=== PATIENT | male | born 1940 | race Caucasian/White ===

== ENCOUNTER 2016-12-14 13:53 | Outpatient (CLI) | payer MEDICARE, OTHER ==
[2013-03-06 09:37] VITALS: BP 118/69
[2016-12-15 00:31] LABS: TOTAL PROTEIN 6.3 g/dL (6.0-8.5)
== END 2016-12-14 14:00 ==
LOC: LAB 13:53
PROVIDERS: ATTEND Family Medicine
DX: I10 Essential (primary) hypertension (principal)
CPT/HCPCS: 36415; 80053

== ENCOUNTER 2017-01-10 16:51 | Outpatient (CLI) | payer MEDICARE, OTHER ==
[2013-03-06 09:37] VITALS: BP 118/69
[2017-01-10 17:09] LABS: BASOPHILS % 0.2 (0.0-1.5); EOSINOPHILS % 4.7 % (0.0-6.8); LYMPHOCYTES # 1.3 # k/uL (0.6-4.0); MEAN CORPUSCULAR HEMOGLOBIN 33.3 pg (28.0-34.0); MONOCYTES # 0.1 # k/uL (0.0-0.9); MONOCYTES % 3.6 % (0.0-11.0)
[2017-01-10 17:25] LABS: eGFR (African) > 60; eGFR (Non-African) > 60
== END 2017-01-10 16:52 ==
LOC: LAB 16:51
PROVIDERS: ATTEND Family Medicine
DX: I10 Essential (primary) hypertension (principal); R06.01 Orthopnea
CPT/HCPCS: 36415; 80053; 83880; 85025

== ENCOUNTER 2017-11-08 12:15 | Outpatient (CLI) | payer MEDICARE, OTHER ==
[2013-03-06 09:37] VITALS: BP 118/69
[2017-11-08 12:33] LABS: BASOPHILS % 0.6 (0.0-1.5); EOSINOPHILS % 3.5 % (0.0-6.8); MEAN CORPUSCULAR HEMOGLOBIN 33.6 pg (28.0-34.0); MEAN CORPUSCULAR VOLUME 101.3 fl (80.0-100.0); MONOCYTES % 4.7 % (0.0-11.0); NEUTROPHILS # 4.4 # k/uL (1.4-7.7)
[2017-11-08 13:22] LABS: eGFR (African) > 60; eGFR (Non-African) 52
== END 2017-11-08 12:16 ==
LOC: LAB 12:15
PROVIDERS: ATTEND Family Medicine
DX: I10 Essential (primary) hypertension (principal); Z79.01 Long term (current) use of anticoagulants
CPT/HCPCS: 36415; 80053; 80061; 85025

== ENCOUNTER 2017-11-09 10:52 | Outpatient (CLI) | payer MEDICARE, OTHER ==
[2013-03-06 09:37] VITALS: BP 118/69
--- NOTE | 2017-11-09 14:17 | Diagnostic Imaging Report ---
SAVANNA ARAIZA [facility] [address] [facility].[address] [address] Report Submission Date: Nov 09, 2017 12:12:07 PM INFRASTRUCTURE ARCHITECT Patient Study Name: VILLA YU Date: Nov 09, 2017 11:20:12 AM INFRASTRUCTURE ARCHITECT Modality Type: US\OT Gender: M Description: LIMITED BILAT ANN 1-2 LVL : 39 Institution: [facility] Physician: SAVANNA ARAIZA Examination: Ultrasound arterial History: Leg discomfort Comparison exams: None available Findings: Sonographic evaluation of the lower extremity arterial system from the groin to the distal extremities bilaterally demonstrates reduced waveforms. Right ankle/brachial index of 0.68. Left ankle/brachial index of 0.62. Impression Bilateral reduction to hemodynamic flow Electronically signed on Nov 09, 2017 12:12:07 PM INFRASTRUCTURE ARCHITECT by: Meir CONTRERAS
== END 2017-11-09 11:00 ==
LOC: RAD 10:52
PROVIDERS: ATTEND Family Medicine
DX: I73.9 Peripheral vascular disease, unspecified (principal)
CPT/HCPCS: 93922

== ENCOUNTER 2018-02-12 13:58 | Outpatient (CLI) | payer MEDICARE, OTHER ==
[2013-03-06 09:37] VITALS: BP 118/69
[2018-02-12 14:15] LABS: BASOPHILS % 0.3 (0.0-1.5); EOSINOPHILS % 2.6 % (0.0-6.8); MEAN CORPUSCULAR HEMOGLOBIN 33.4 pg (28.0-34.0); MEAN CORPUSCULAR VOLUME 103.2 fl (80.0-100.0); MONOCYTES % 3.5 % (0.0-11.0); NEUTROPHILS # 4.8 # k/uL (1.4-7.7)
[2018-02-12 14:29] LABS: eGFR (African) 50; eGFR (Non-African) 42
== END 2018-02-12 14:00 ==
LOC: LAB 13:58
PROVIDERS: ATTEND Internal Medicine Cardiovascular Disease
DX: I10 Essential (primary) hypertension (principal); I34.0 Nonrheumatic mitral (valve) insufficiency; I48.1 Persistent atrial fibrillation; I50.22 Chronic systolic (congestive) heart failure; R06.02 Shortness of breath
CPT/HCPCS: 36415; 80048; 83880; 85025

== ENCOUNTER 2018-03-07 13:41 | Outpatient (CLI) | payer MEDICARE, OTHER ==
[2013-03-06 09:37] VITALS: BP 118/69
[2018-03-07 14:23] LABS: eGFR (African) 50; eGFR (Non-African) 42
== END 2018-03-07 13:42 ==
LOC: LAB 13:41
PROVIDERS: ATTEND Internal Medicine Cardiovascular Disease
DX: I10 Essential (primary) hypertension (principal)
CPT/HCPCS: 36415; 80048

== ENCOUNTER 2018-05-08 09:17 | Outpatient (CLI) | payer MEDICARE, OTHER ==
[2013-03-06 09:37] VITALS: BP 118/69
[2018-05-08 10:13] LABS: eGFR (African) 50; eGFR (Non-African) 42
== END 2018-05-08 09:19 ==
LOC: LAB 09:17
PROVIDERS: ATTEND Nurse Practitioner
DX: I10 Essential (primary) hypertension (principal); I25.5 Ischemic cardiomyopathy; I50.22 Chronic systolic (congestive) heart failure
CPT/HCPCS: 36415; 80048

== ENCOUNTER 2018-07-16 13:45 | Outpatient (CLI) | payer MEDICARE, OTHER ==
[2013-03-06 09:37] VITALS: BP 118/69
[2018-07-16 14:44] LABS: eGFR (African) > 60; eGFR (Non-African) 52
== END 2018-07-16 13:46 ==
LOC: LAB 13:45
PROVIDERS: ATTEND Nurse Practitioner
DX: I10 Essential (primary) hypertension (principal); I25.5 Ischemic cardiomyopathy; I48.1 Persistent atrial fibrillation; I50.22 Chronic systolic (congestive) heart failure
CPT/HCPCS: 36415; 80048

== ENCOUNTER 2018-10-30 14:12 | Outpatient (CLI) | payer MEDICARE, OTHER ==
[2013-03-06 09:37] VITALS: BP 118/69
[2018-10-30 14:38] LABS: BASOPHILS % 0.3 (0.0-1.5); MONOCYTES % 5.2 % (0.0-11.0); NEUTROPHILS # 5.1 # k/uL (1.4-7.7)
[2018-10-30 15:00] LABS: eGFR (Non-African) 52
== END 2018-10-30 14:13 ==
LOC: LAB 14:12
PROVIDERS: ATTEND Family Medicine
DX: R10.13 Epigastric pain (principal)
CPT/HCPCS: 36415; 80053; 83690; 85025

== ENCOUNTER 2018-11-06 07:56 | Outpatient (CLI) | payer MEDICARE, OTHER ==
[2013-03-06 09:37] VITALS: BP 118/69
--- NOTE | 2018-11-06 14:27 | Diagnostic Imaging Report ---
SAVANNA ARAIZA [facility] [address] [facility].[address] [address] Report Submission Date: Nov 06, 2018 8:55:47 AM DISTILLERY WORKER GENERAL Patient Study Name: VILLA YU Date: Nov 06, 2018 7:02:45 AM DISTILLERY WORKER GENERAL Modality Type: US Gender: M Description: US RUQ : 38 Institution: [facility] Physician: SAVANNA ARAIZA Right upper quadrant ultrasound History: Epigastric pain for 1 month Transverse and longitudinal images were obtained through the right upper quadrant. The examination is limited as the patient is unable to breath hold. No pancreatic abnormalities are noted. No abnormalities of the liver are noted. The gallbladder is normal without gallstones or gallbladder wall thickening. The right kidney measures 11.6 cm in length and demonstrates no hydronephrosis. There is mild thinning of the cortex. The common bile duct is within normal limits measuring 3.2 mm. Impression: Limited exam as the patient was unable to breath hold. There is mild thinning of the cortex of the right kidney. Otherwise, no abnormalities are noted. Electronically signed on Nov 06, 2018 8:55:47 AM DISTILLERY WORKER GENERAL by: Anitra CONTRERAS
== END 2018-11-06 08:30 ==
LOC: RAD 07:56
PROVIDERS: ATTEND Family Medicine
DX: R10.13 Epigastric pain (principal)
CPT/HCPCS: 76705

== ENCOUNTER 2019-07-24 15:06 | Outpatient (CLI) | payer MEDICARE, OTHER ==
[2013-03-06 09:37] VITALS: BP 118/69
[2019-07-24 15:26] LABS: eGFR (Non-African) 34
== END 2019-07-24 15:08 ==
LOC: LAB 15:06
PROVIDERS: ATTEND Internal Medicine Cardiovascular Disease
DX: I25.5 Ischemic cardiomyopathy (principal); I48.2 Chronic atrial fibrillation; R06.02 Shortness of breath
CPT/HCPCS: 36415; 80048

== ENCOUNTER 2019-07-31 04:51 | Emergency (ER) | payer MEDICARE, OTHER ==
[2019-07-31] MEDS ORDERED: dilTIAZem HCL 25 MG/5 ML VIAL IVP ONE (05:14)
--- NOTE | 2019-07-31 05:26 | ED Physician Documentation ---
Chest Pain - HISTORIAN Historian: patient - HPI Stated Complaint: chest pain Chief Complaint: Chest Pain Additional Information: Patient is an 79 year old male who presents to the ER with c/o chest pain that started around 3 a.m. this morning. Patient states that he took some Zantac because it felt like acid reflux. He decided to drive to the ER; he states "I don't know why I came in because the acid reflux is gone". He denies any chest pain, palpitations, or shortness of breath. He states "I feel fine and I need to get out of here soon". Heart rate is 110-130s he states "I always run that"- explained his blood pressure was elevated 159/100 and he states "thats good for me". 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 Onset: hours (started at 3 a.m.) Timing: sudden onset, resolved on arrival to ED Duration: none Last known Well Date: 07/31/19 Last Known Well Time: 03:00 Last known Well Code/Unknown Code: Known Context: rest Severity: moderate Quality: burning Chest Pain Radiation: epigastric Chest Pain Signs/Symptoms: tachycardia (states- normal). denies: nausea, vomiting, dyspnea, palpitations Worsened By: nothing Relieved By: antacids - ROS CONST: none MS/LYMPH: none GI/: none EYES/ENT: none SKIN/ENDO: none NEURO/PSYCH: none - PAST HX PA risk factors: hypertension, hyperlipidemia, cardiac disease, CHF, A-Fib DVT/PE Risk Factors: other (chronic kidney disease) TAD/AAA risk factors: none Neuro deficit: none GI disease: GERD Lung disease: none Surgeries/Procedures: other (prostectomy, AV prosthetic, eye surgery) Immunizations: UTD - SOCIAL HX Smoking History: non-smoker Alcohol Use: rarely Drug Use: none - FAMILY HX Family HX: none - VITAL SIGNS Vital Signs: Vital Signs Temp Pulse Resp BP Pulse Ox 95.6 F L 115 H 25 H 153/74 99 07/31/19 05:05 07/31/19 05:06 07/31/19 05:05 07/31/19 05:05 07/31/19 05:06 - REVIEWED ASSESSMENTS Nursing Assessment Reviewed: Yes Vitals Reviewed: Yes <Margarita Villa - Last Filed: 07/31/19 06:52> - VITAL SIGNS Vital Signs: Vital Signs Temp Pulse Resp BP Pulse Ox 95.6 F L 75 25 H 153/74 96 07/31/19 05:05 07/31/19 07:00 07/31/19 05:05 07/31/19 05:05 07/31/19 07:00 <Petra Lowery - Last Filed: 07/31/19 07:24> - PAST HX Allergies/Adverse Reactions: Allergies Allergy/AdvReac Type Severity Reaction Status Date / Time No Known Drug Allergies Allergy Verified 07/31/19 05:22 Home Medications: Ambulatory Orders Medication Instructions Recorded Apixaban [Eliquis] 5 mg PO BID u2 06/22/16 ALPRAZolam [Xanax] 1 tab PO PRN PRN 07/31/19 Carvedilol [Coreg] 1 tab PO BID 07/31/19 Furosemide [Lasix] 1 tab PO DAILY 07/31/19 Isosorbide Mononitrate [Imdur] 1 tab PO DAILY 07/31/19 Rosuvastatin Calcium [Crestor] 1 tab PO DAILY 07/31/19 Sacubitril/Valsartan [Entresto 97 1 tab PO BID 07/31/19 mg-103 mg Tablet] Spironolactone [Aldactone] 1 tab PO DAILY 07/31/19 Progress - Progress Progress: 05:58 talk to patient about lab work; heart rate down to 77 and blood pressure down to 106/49 after Cardizem. He refuses to be admitted; states that he feels fine; patient agreed to stay until 7 a.m. to repeat troponin but states he is going home afterward. Explained about repeating Troponin; he is ok with that. He saw Admission Liaison earlier this month and he is aware of kidney function; he was told to drink more water. 06:50 2nd troponin drawn; patient denies any chest pain, shortness of breath, or palpitations; still wanting to go home but will wait for troponin results. <Margarita Villa - Last Filed: 07/31/19 06:52> - Progress Progress: 0723: lab continues to be within normal limits - discharge as written - he is aware and voices understanding DG <Petra Lowery - Last Filed: 07/31/19 07:24> ED Results Lab/Radiology - Orders Orders: ED Orders Category Date Time Status Continuous EKG monitoring Q30M Care 07/31/19 05:06 Ordered Continuous Pulse Oximetry Q30M Care 07/31/19 05:[address] IV Lock 1T Care 07/31/19 05:06 Ordered CHEST 1VIEW [RAD] Stat Exams 07/31/19 Ordered BNP [NTBNP] Stat Lab 07/31/19 Ordered CBC/PLATELET/DIFF Routine Lab 07/31/19 05:06 Ordered CMP Routine Lab 07/31/19 05:06 Ordered CREATINE KINASE Routine Lab 07/31/19 05:06 Ordered TROPONIN I Stat Lab 07/31/19 05:06 Ordered dilTIAZem HCL [Cardizem] Med 07/31/19 05:14 Once 20 mg IVP STAT ONE Oxygen Daily Oxygen 07/31/19 05:15 Ordered EKG WITH COMPARISON Stat Ther 07/31/19 05:06 Ordered <Margarita Villa - Last Filed: 07/31/19 06:52> - Lab Results Lab Results: Lab Results 07/31/19 07/31/19 07/31/19 06:46 05:17 05:17 WBC RBC Hgb Hct MCV MCH MCHC RDW Plt Count Neut % (Auto) Lymph % (Auto) [place] % (Auto) Eos % (Auto) Baso % (Auto) Neut # (Auto) Lymph # (Auto) [place] # (Auto) Eos # (Auto) Baso # (Auto) Sodium 140 mmol/L mmol/L (137-145) Potassium 5.0 mmol/L mmol/L (3.5-5.1) Chloride 102 mmol/L mmol/L (98-107) Carbon Dioxide 26 mmol/L mmol/L (22-30) Anion Gap 17.0 BUN 54 mg/dL H mg/dL (9-20) Creatinine 2.33 mg/dL H mg/dL (0.66-1.25) Estimated Creat Clear 34 Est GFR ( Amer) 35 L (60 - ) Est GFR (Non-Af Amer) 29 L (60 - ) Glucose 116 mg/dL H mg/dL (74-106) Calcium 9.2 mg/dL mg/dL (8.4-10.2) Total Bilirubin 0.5 mg/dL mg/dL (0.2-1.3) AST 36 U/L U/L (15-46) ALT 36 U/L U/L (13-69) Alkaline Phosphatase 88 U/L U/L (38-126) Creatine Kinase 40 U/L L U/L (55-170) Troponin I 0.028 ng/mL ng/mL 0.022 ng/mL ng/mL (0.012-0.034) (0.012-0.034) NT-Pro-B Natriuret Pep 1224.8 pg/mL H pg/mL (11.1-450.0) Total Protein 7.2 g/dL g/dL (6.3-8.2) Albumin 4.3 g/dL g/dL (3.5-5.0) 07/31/19 05:17 WBC 8.40 K/ul K/ul (4.00-12.00) RBC 4.35 M/ul M/ul (3.90-5.20) Hgb 14.7 g/dL g/dL (12.0-18.0) Hct 43.6 % % (37.0-53.0) MCV 100.0 fl fl (80.0-100.0) MCH 33.7 pg pg (28.0-34.0) MCHC 33.6 g/dL g/dL (30.0-36.0) RDW 11.8 % % (11.3-14.3) Plt Count 137 K/mm3 K/mm3 (130-400) Neut % (Auto) 58.9 % % (39.0-79.0) Lymph % (Auto) 31.9 % % (16.0-50.0) [place] % (Auto) 6.2 % % (0.0-11.0) Eos % (Auto) 2.5 % % (0.0-6.8) Baso % (Auto) 0.5 % % (0.0-1.5) Neut # (Auto) 4.9 # k/uL # k/uL (1.4-7.7) Lymph # (Auto) 2.7 # k/uL # k/uL (0.6-4.0) [place] # (Auto) 0.5 # k/uL # k/uL (0.0-0.9) Eos # (Auto) 0.2 # k/uL # k/uL (0.0-0.6) Baso # (Auto) 0.0 # k/uL # k/uL (0.0-0.5) Sodium Potassium Chloride Carbon Dioxide Anion Gap BUN Creatinine Estimated Creat Clear Est GFR ( Amer) Est GFR (Non-Af Amer) Glucose Calcium Total Bilirubin AST ALT Alkaline Phosphatase Creatine Kinase Troponin I NT-Pro-B Natriuret Pep Total Protein Albumin - Orders Orders: ED Orders Category Date Time Status Continuous EKG monitoring Q30M Care 07/31/19 05:06 Active Continuous Pulse Oximetry Q30M Care 07/31/19 05:[address] IV Lock 1T Care 07/31/19 05:06 Active CHEST 1VIEW [RAD] Stat Exams 07/31/19 Taken BNP [NTBNP] Stat Lab 07/31/19 06:46 Completed CBC/PLATELET/DIFF Routine Lab 07/31/19 05:17 Completed CMP Routine Lab 07/31/19 05:17 Completed CREATINE KINASE Routine Lab 07/31/19 05:17 Completed TROPONIN I Routine Lab 07/31/19 06:46 Completed TROPONIN I Stat Lab 07/31/19 05:17 Completed dilTIAZem HCL [Cardizem] Med 07/31/19 05:14 Discontinued 20 mg IVP STAT ONE Oxygen Daily Oxygen 07/31/19 05:15 Ordered EKG WITH COMPARISON Stat Ther 07/31/19 05:06 Ordered <Petra Lowery - Last Filed: 07/31/19 07:24> Chest Pain Physical Exam - EXAM General Appearance: no acute distress, alert EENT: eye inspection normal, ENT inspection normal, pharynx normal, no signs of dehydration, CYNTHIA Neck: nml inspection, no carotid bruit Respiratory: chest non-tender, nml breath sounds CVS: pulses equal, irregularly irreg. rhythm, tachycardia Abdomen: soft, normal bowel sounds Skin: warm/dry, normal color Extremities: non-tender, normal range of motion Neuro: oriented X3, CN's nml as tested, motor nml, sensation nml, mood/affect nml, cognition normal <Margarita Villa - Last Filed: 07/31/19 06:52> Discharge <Margarita Villa - Last Filed: 07/31/19 06:52> Decision to Admit: NO Date of Decison to Admit: 07/31/19 Decision Time: 07:23 <Petra Lowery - Last Filed: 07/31/19 07:24> Clincal Impression: GERD (gastroesophageal reflux disease) Qualifiers: Esophagitis presence: without esophagitis Qualified Code(s): K21.9 - Gastro- esophageal reflux disease without esophagitis A-fib Qualifiers: Atrial fibrillation type: chronic Qualified Code(s): I48.2 - Chronic atrial fibrillation Referrals: Giovanni Woodard MD [Primary Care Provider] - 2 Days Additional Instructions: Follow up with PCP this week Patient was given 10 mg of Cardizem IVP in ER for A-fib with rate of 120 Cardiac enzymes were negative Increase water intake Start taking acid reflux medication again; Omeprazole Return to ER if you develop chest pain, shortness of breath, palpitations, weakness, slurred speech. Condition: Stable Disposition: 01 HOME, SELF-CARE
[2019-07-31 06:36] LABS: BASOPHILS % 0.5 % (0.0-1.5); NEUTROPHILS # 4.9 # k/uL (1.4-7.7)
[2019-07-31 07:30] VITALS: BP 118/69
--- NOTE | 2019-08-01 14:22 | Diagnostic Imaging Report ---
DAWSON VILLEDA ED [facility] [address] [facility].[address] [address] Report Submission Date: Jul 31, 2019 5:36:36 AM CDT Patient Study Name: VILLA YU Date: Jul 31, 2019 5:17:21 AM CDT Modality Type: DX Gender: M Description: CHEST 1VIEW : 38 Institution: [facility] Physician: DAWSON VILLEDA ED Chest, AP portable History: Chest pain Findings: No infiltrate, effusion or pneumothorax is present. The heart is enlarged. Pulmonary vascularity is normal. Impression: No active pulmonary disease. Electronically signed on Jul 31, 2019 5:36:36 AM CDT by: Surinder CONTRERAS
== END 2019-07-31 07:24 | disposition home or self-care (01) ==
LOC: ED 04:51
DX: K21.9 Gastro-esophageal reflux disease without esophagitis (principal); I48.2 Chronic atrial fibrillation
CPT/HCPCS: 36415; 71045; 80053; 82550; 83880; 84484; 85025; 93005; 96374; 99283; 99284; J3490; S1016

== ENCOUNTER 2019-08-30 15:15 | Outpatient (CLI) | payer MEDICARE, OTHER ==
[2019-09-06 08:23] LABS: eGFR (Non-African) 37
== END 2019-08-30 15:16 ==
LOC: LAB 15:15
PROVIDERS: ATTEND Internal Medicine Cardiovascular Disease
DX: E87.5 Hyperkalemia (principal)
CPT/HCPCS: 36415; 80048

== ENCOUNTER 2019-10-09 15:54 | Outpatient (CLI) | payer MEDICARE, OTHER ==
[2019-10-09 16:38] LABS: eGFR (Non-African) 42
== END 2019-10-09 15:59 ==
LOC: LAB 15:54
PROVIDERS: ATTEND Internal Medicine Cardiovascular Disease
DX: I70.213 Atherosclerosis of native arteries of extremities with intermittent claudication, bilateral legs (principal)
CPT/HCPCS: 36415; 80048